=== PATIENT | female | born 1945 | race Caucasian/White ===

== ENCOUNTER 2020-01-22 14:11 | Outpatient (REF) | payer MEDICARE, SELFPAY ==
--- NOTE | 2020-01-22 | MM_ITS ---
EXAMINATION: MM SCREENING DIGITAL BREAST TOMOSYNTHESIS, BILATERAL CLINICAL INFORMATION: Screening. Asymptomatic. The lifetime risk of breast cancer based on the Tyrer-Cuzick Model is 3%. COMPARISON: Mammography: 06/28/2018, 05/31/2017, 02/29/2016 TECHNIQUE: Digital breast tomosynthesis is performed in both the craniocaudal and mediolateral oblique views along with computer-aided detection (CAD). Synthesized 2D images are generated from the tomosynthesis. FINDINGS: The breasts are heterogeneously dense, which may obscure small masses (ACR BI-RADS breast composition Category c). There are no significant masses, abnormal calcifications, or other abnormalities. Parenchymal pattern is similar to prior studies. No significant changes. IMPRESSION: No mammographic evidence of malignancy. ASSESSMENT: BI-RADS 1: Negative RECOMMENDATION: Routine annual mammography screening. This patient's information was entered into a reminder system with a target due date for their next mammogram.
== END 2020-01-22 14:12 | disposition home or self-care (01) ==
LOC: HO.MAMMO 14:11
PROVIDERS: PCP Internal Medicine; Visit Provider Internal Medicine
DX: Z12.31 Encounter for screening mammogram for malignant neoplasm of breast (principal)
CPT/HCPCS: 77063; 77067; 78014

== ENCOUNTER 2021-02-18 13:56 | Outpatient (REF) | payer MEDICARE, SELFPAY ==
--- NOTE | ~2021-02-18 | MM_ITS ---
EXAMINATION: BONE DENSITOMETRY CLINICAL INDICATION: Osteoporosis. COMPARISON: Previous BD dated 11/23/2018 and baseline BD dated 10/26/2007. TECHNIQUE: Using a [employer] DXA System (software version: 13.1) manufactured by [employer], dual-energy x-ray absorptiometry was performed of the lumbar spine and left hip. The images are of good technical quality. Summary results are attached. FINDINGS: AP SPINE L1-L4: Current: BMD 1.018 g/cm2, Z-score 1.0, T-score -1.3, osteopenia, 0.3% increase from previous, 2.7% decrease from baseline (<5% change is not significant). Prior: BMD 1.015 g/cm2. Baseline: BMD 1.046 g/cm2. LEFT FEMUR, NECK: Current: BMD 0.664 g/cm2, Z-score -0.4, T-score -2.7, osteoporosis. Prior: BMD 0.676 g/cm2. Baseline: BMD 0.668 g/cm2. LEFT FEMUR, TOTAL: Current: BMD 0.685 g/cm2, Z-score -0.5, T-score -2.6, osteoporosis, 0.6% increase from previous, 7.6% decrease from baseline (<5% change is not significant). Prior: BMD 0.681 g/cm2. Baseline: BMD 0.741 g/cm2. IDENTIFIED RISK FACTORS: Menopause, low body weight, osteoporosis. HISTORY OF FRACTURE: None listed. MEDICATIONS: Calcium, vitamin D. MM/XR DEXA axial skeleton IMPRESSION: 1. DIAGNOSIS: Osteoporosis based on the lowest T-score value of -2.7 in the femoral neck applying World Health Organization criteria. 2. 10-YEAR FRACTURE RISK PREDICTION, FRAX: According to the guidelines, FRAX calculation should only be performed on patients in the osteopenia bone density category. 3. Treatment Recommendations: NOF guidelines recommend consideration for treatment in postmenopausal women and men age 50 and older presenting with the following: -A hip or vertebral (clinical or morphometric) fracture. -T-score less than or equal to -2.5 at the femoral neck or spine after appropriate evaluation to exclude secondary causes. -Low bone mass at the hip or spine and a 10-year fracture probability by FRAX of greater than or equal to 3% for hip fracture or greater than or equal to 20% for major osteoporotic fracture based on the [place] adapted WHO algorithm. 4. Other Recommendations: All treatment decisions require clinical judgment and consideration of individual patient factors, including patient preferences, comorbidities, previous drug use, risk factors not captured in the FRAX model (e.g. frailty, falls, vitamin D deficiency, increased bone turnover, interval significant decline in bone density) and possible under or overestimation of fracture risk by FRAX. Additional medical evaluation for secondary cause of low bone mineral density may be appropriate. FUTURE SCAN RECOMMENDATION: People with diagnosed cases of osteoporosis or at high risk for fracture should have regular bone mineral density tests. For patients eligible for Medicare, routine testing is allowed once every 2 years. The testing frequency can be increased to one year for patients who have rapidly progressing disease, those who are receiving or discontinuing medical therapy to restore bone mass, or have additional risk factors.
--- NOTE | ~2021-02-18 | MM_ITS ---
EXAMINATION: MM SCREENING DIGITAL BREAST TOMOSYNTHESIS, BILATERAL CLINICAL INFORMATION: Screening. Asymptomatic. The lifetime risk of breast cancer based on the Tyrer-Cuzick Model is 2.9%. COMPARISON: Mammography: January 22, 2020 and studies dating back to March 05, 2011 TECHNIQUE: Digital breast tomosynthesis is performed in both the craniocaudal and mediolateral oblique views along with computer-aided detection (CAD). Synthesized 2D images are generated from the tomosynthesis. FINDINGS: The breasts are heterogeneously dense, which may obscure small masses (ACR BI-RADS breast composition Category c). There are no significant masses, abnormal calcifications, or other abnormalities. MM/MM tomosynthesis screening BI IMPRESSION: There are no significant changes from prior study. ASSESSMENT: BI-RADS 1: Negative RECOMMENDATION: Routine annual mammography screening. This patient's information was entered into a reminder system with a target due date for their next mammogram.
== END 2021-02-18 13:57 | disposition home or self-care (01) ==
LOC: HO.MAMMO 13:56
PROVIDERS: PCP Internal Medicine; Visit Provider Internal Medicine
DX: Z12.31 Encounter for screening mammogram for malignant neoplasm of breast (principal); Z13.820 Encounter for screening for osteoporosis; M81.0 Age-related osteoporosis without current pathological fracture; Z78.0 Asymptomatic menopausal state; Z79.899 Other long term (current) drug therapy
CPT/HCPCS: 77063; 77067; 77080

== ENCOUNTER 2022-02-24 10:07 | Outpatient (REF) | payer MEDICARE, SELFPAY ==
--- NOTE | ~2022-02-24 | MM_ITS ---
EXAMINATION: MM SCREENING DIGITAL BREAST TOMOSYNTHESIS, BILATERAL CLINICAL INFORMATION: Screening. Asymptomatic. COMPARISON: Mammography: February 18, 2021 and studies dating back to August 22, 2014 TECHNIQUE: Digital breast tomosynthesis is performed in both the craniocaudal and mediolateral oblique views along with computer-aided detection (CAD). Synthesized 2D images are generated from the tomosynthesis. Additional bilateral exaggerated craniocaudal views performed. FINDINGS: The breasts are heterogeneously dense, which may obscure small masses (ACR BI-RADS breast composition Category c). There are no significant masses, abnormal calcifications, or other abnormalities. MM/MM tomosynthesis screening BI IMPRESSION: No significant changes from prior exam. ASSESSMENT: BI-RADS 1: Negative RECOMMENDATION: Routine annual mammography screening. This patient's information was entered into a reminder system with a target due date for their next mammogram.
== END 2022-02-24 10:08 | disposition home or self-care (01) ==
LOC: HO.MAMMO 10:07
PROVIDERS: Visit Provider Internal Medicine
DX: Z12.31 Encounter for screening mammogram for malignant neoplasm of breast (principal)
CPT/HCPCS: 77063; 77067

== ENCOUNTER 2023-03-02 09:41 | Outpatient (REF) | payer MEDICARE, SELFPAY ==
--- NOTE | ~2023-03-02 | MM_ITS ---
EXAMINATION: MM SCREENING DIGITAL BREAST TOMOSYNTHESIS, BILATERAL CLINICAL INFORMATION: Screening. Asymptomatic. COMPARISON: Mammography: 10/24/2021, 02/18/2021, 01/22/2020, 06/28/2018, 05/31/2017, 02/29/2016 TECHNIQUE: Digital breast tomosynthesis is performed in both the craniocaudal and mediolateral oblique views along with computer-aided detection (CAD). Synthesized 2D images are generated from the tomosynthesis. FINDINGS: The breasts are heterogeneously dense, which may obscure small masses (ACR BI-RADS breast composition Category c). There are benign vascular calcifications. There are no suspicious masses, suspicious grouped calcifications, or areas of architectural distortion in either breast. The parenchymal pattern is stable from prior exams. MM/MM tomosynthesis screening BI IMPRESSION: No mammographic evidence of malignancy. ASSESSMENT: BI-RADS BI-RADS 2 - Benign Findings RECOMMENDATION: Routine annual mammography screening. 1 year F/U This examination should not preclude the clinical evaluation of a suspicious palpable abnormality. This patient's information was entered into a reminder system with a target due date for their next mammogram.
== END 2023-03-02 09:42 | disposition home or self-care (01) ==
LOC: HO.MAMMO 09:41
PROVIDERS: PCP Internal Medicine; Visit Provider Internal Medicine
DX: Z12.31 Encounter for screening mammogram for malignant neoplasm of breast (principal)
CPT/HCPCS: 77063; 77067

== ENCOUNTER → 2023-03-02 10:00 | Outpatient (BNV) | payer MEDICARE, SELFPAY | PROVIDERS: PCP Internal Medicine; Visit Provider Radiology Diagnostic Radiology | DX: Z12.31 Encounter for screening mammogram for malignant neoplasm of breast (principal) | CPT/HCPCS: 77063; 77067 ==

== ENCOUNTER 2024-04-26 09:36 | Outpatient (REF) | payer MEDICARE, SELFPAY | END 2024-04-26 09:37 | disposition home or self-care (01) | LOC: HO.MAMMO 09:36 | PROVIDERS: PCP Internal Medicine; Visit Provider Internal Medicine | DX: Z12.31 Encounter for screening mammogram for malignant neoplasm of breast (principal) | CPT/HCPCS: 77063; 77067 ==

== ENCOUNTER → 2024-04-26 09:45 | Outpatient (BNV) | payer MEDICARE, SELFPAY | PROVIDERS: PCP Internal Medicine; Visit Provider Internal Medicine | DX: Z12.31 Encounter for screening mammogram for malignant neoplasm of breast (principal) | CPT/HCPCS: 77063; 77067 ==

== ENCOUNTER 2024-12-02 10:14 | Outpatient (AMB) | payer MEDICARE, SELFPAY | END 2024-12-02 10:20 | disposition home or self-care (01) | LOC: HO.HMGAL 10:14 | PROVIDERS: PCP Internal Medicine; Visit Provider Registered Nurse Emergency | DX: J30.89 Other allergic rhinitis (principal) | CPT/HCPCS: 95117; 95165 ==

== ENCOUNTER 2024-12-30 10:01 | Outpatient (AMB) | payer MEDICARE, SELFPAY | END 2024-12-30 10:10 | disposition home or self-care (01) | LOC: HO.HMGAL 10:01 | PROVIDERS: PCP Internal Medicine; Visit Provider Registered Nurse Emergency | DX: J30.89 Other allergic rhinitis (principal) | CPT/HCPCS: 95117; 95165 ==

== ENCOUNTER 2025-02-05 10:18 | Outpatient (AMB) | payer MEDICARE, SELFPAY ==
--- OUTSIDE RECORDS SUMMARY | 2024-06-20 02:29 | XMS_ITS ---
Author Organization [facility] Address [address] [place], [place] [phone] Care Team Providers Care Director Life Insurance Name Role Phone YVON RAE Primary Care Provider REASON FOR VISIT Urine Encounters Encounter Location Date Provider Diagnosis [facility] [address] [place] [address] 06/20/2024 YVON RAE PLAN OF TREATMENT Next Appt Details Provider Name:YVON RAE , 04/07/2025 11:15:00 AM, [address] [place], [address],
--- OUTSIDE RECORDS SUMMARY | 2024-06-26 15:37 | XMS_ITS ---
Author Organization [facility] Address [address] [place], [place] [phone] Care Team Providers Care Press Shop Supervisor Name Role Phone YVON RAE Primary Care Provider REASON FOR VISIT (FYI) US Encounters Encounter Location Date Provider Diagnosis [facility] [address] [place] [address] 06/26/2024 YVON RAE PLAN OF TREATMENT Next Appt Details Provider Name:YVON RAE , 04/07/2025 11:15:00 AM, [address] [place], [address],
--- OUTSIDE RECORDS SUMMARY | 2024-07-10 04:08 | XMS_ITS ---
Author Organization [facility] Address [address] [place], [place] [id number] Care Team Providers Care Rehanger Name Role Phone YVON RAE Primary Care Provider [phone] REASON FOR VISIT rescheduled today's appt Encounters Encounter Location Date Provider Diagnosis [address] [address] 07/10/2024 YVON RAE PLAN OF TREATMENT Next Appt Details Provider Name:YVON RAE , 04/07/2025 11:15:00 AM, [address] [place], [address],
--- OUTSIDE RECORDS SUMMARY | 2024-07-10 07:15 | XMS_ITS ---
Author Organization [facility] Address [address] [place], [place] [phone] Care Team Providers Care Model Maker Fiberglass Name Role Phone YVON RAE Primary Care Provider REASON FOR VISIT 41/ 3mo Encounters Encounter Location Date Provider Diagnosis [facility] [address] [place] [address] 07/10/2024 YVON RAE PLAN OF TREATMENT Next Appt Details Provider Name:YVON RAE , 04/07/2025 11:15:00 AM, [address] [place], [address],
--- OUTSIDE RECORDS SUMMARY | 2024-08-08 07:00 | XMS_ITS ---
Author Organization [facility] Address [address] [place], [place] [phone] Care Team Providers Care Mental Health Associate Name Role Phone YVON RAE Primary Care [...] 08/08/2024 Encounters Encounter Location Date Provider Diagnosis [facility] [address] [place] [address] 08/08/2024 YVON RAE Recurrent UTI N39.0 ; [...] Name:YVON RAE , 04/07/2025 11:15:00 AM, [address] [facility], [place], [address], Progress Notes * Examination Category Sub-Category Detail [...]
--- OUTSIDE RECORDS SUMMARY | 2024-08-09 11:50 | XMS_ITS ---
Author Organization [facility] Address [address] [place], [place] [phone] Care Team Providers Care Timber Rider Name Role Phone YVON RAE Primary Care Provider [phone] REASON FOR VISIT Labs Encounters Encounter Location Date Provider Diagnosis [facility] [address] [place] [address] 08/09/2024 YVON RAE PLAN OF TREATMENT Next Appt Details Provider Name:YVON RAE , 04/07/2025 11:15:00 AM, [address] [place], [address],
--- OUTSIDE RECORDS SUMMARY | 2024-08-27 07:44 | XMS_ITS ---
Author Organization [facility] Address [address] [place], [place] [phone] Care Team Providers Care Rope Making Machine Operator Name Role Phone YVON RAE Primary Care Provider [phone] REASON FOR VISIT Shingles Shot Encounters Encounter Location Date Provider Diagnosis [facility] [address] [place] [address] 08/27/2024 YVON RAE PLAN OF TREATMENT Next Appt Details Provider Name:YVON RAE , 04/07/2025 11:15:00 AM, [address] [place], [address],
--- OUTSIDE RECORDS SUMMARY | 2024-10-10 07:00 | XMS_ITS ---
Author Organization [facility] Address [address] [place], [place] [phone] Care Team Providers Care Special Education Professional Name Role Phone YVON RAE Primary Care Provider [phone] ALLERGIES Allergen (clinical drug ingredient) Drug/Non Drug [...] 10/10/2024 Encounters Encounter Location Date Provider Diagnosis [facility] [address] [place] [address] 10/10/2024 YVON RAE Recurrent UTI N39.0 ; [...] , 04/07/2025 11:15:00 AM, [address] [place], [address], Progress Notes * Examination Category Sub-Category Detail [...]
--- OUTSIDE RECORDS SUMMARY | 2025-01-06 07:15 | XMS_ITS ---
Author Organization [facility] Address [address] [place], [place] [phone] Care Team Providers Care Watch Engine Operator Name Role Phone YVON RAE Primary Care Provider [phone] ALLERGIES Allergen (clinical drug ingredient) Drug/Non Drug [...] 01/06/2025 Encounters Encounter Location Date Provider Diagnosis [facility] [address] [place] [address] 01/06/2025 YVON RAE Recurrent UTI N39.0 ; [...] Name:YVON RAE , 04/07/2025 11:15:00 AM, [address] [place], [address], Progress Notes * Examination Category Sub-Category Detail [...]
--- OUTSIDE RECORDS SUMMARY | 2025-01-07 02:21 | XMS_ITS ---
Author Organization [facility] Address [address] [place], [place] [phone] Care Team Providers Care Filter Bed Placer Name Role Phone YVON RAE Primary Care Provider REASON FOR VISIT labs Encounters Encounter Location Date Provider Diagnosis [facility] [address] [place] [address] 01/07/2025 YVON RAE PLAN OF TREATMENT Next Appt Details Provider Name:YVON RAE , 04/07/2025 11:15:00 AM, [address] [place], [address],
--- OUTSIDE RECORDS SUMMARY | 2025-02-05 12:41 | XMS_ITS | Patient Health Record ---
Author Organization [facility] Address [address], [place] [id number] Care Team Providers Care Barrel Plater Name Role Phone YVON RAE Primary Care Provider [phone] ALLERGIES Allergen (clinical drug ingredient) Drug/Non Drug Allergy documented on EMR Reaction Allergy Type Onset Date Status codeine Codeine Unknown Drug Allergy Active REASON FOR REFERRAL No Information MEDICATIONS Medication SIG (Take, Route, Frequency, Duration) [...] tablet Oral ly Once a day Active IMMUNIZATIONS Vaccine Route Administration Date Status Comme nts Zoster recombinant SC Subcutaneous 11/21/2012 Administered Td (Tetanus Diphtheria) Unknown 11/28/2008 Administered SARSCOV2 VAC BVL 3MCG/0.2ML Pfizer Unknown 02/02/2021 Administered SARSCOV2 VAC 3 MCG TRS-SUCR Pfizer Unknown 08/24/2021 Administered Pneumococcal, PPV 23 Unknown 03/25/2013 Administered Pneumococcal, PPV 23 IM Intramuscular 07/22/2019 Administe red Pneumococcal Prevnar 13 IM Intramuscular 03/25/2013 Admini stered Pneumococcal Prevnar 13 Unknown 08/21/2018 Administered Pfizer COVID-19,mRNA, LNP-S, PF, 30mcg/0.3mL dose Unknown 06/27/2020 Administered Pfizer COVID-19,mRNA, LNP-S, PF, 30mcg/0.3mL dose Unknown 07/18/2020 Administered Covid Unknown 01/19/2022 Administered SOCIAL HISTORY Tobacco Use: Social History Observation Description Date Details (start date - stop date) Former Smoker NA - NA Sex Assigned At : Social History Observation Description Sex Assigned At Unknown Smoking Question Answer Notes Are you a: former smoker How long has it been since you last smoked? > 10 years PROBLEMS Problem Type ICD Code Onset Dates Problem Status W/U Status Risk SNOMED Code Notes Problem Vitamin D deficiency (E55.9) Active confirmed 10368181 Problem Age-related osteoporosis without current pathological fracture (M81.0) Active confirmed 45296873 Problem Chronic obstructive pulmonary disease, unspecified COPD type (J44.9) Active confirmed 17529750 Problem Chronic allergic rhinitis (J30.9) Active confirmed 90155910 Problem Type 2 diabetes mellitus with hyperglycemia, without long-term current use of insulin (E11.65) Active confirmed Hyperglycem ia due to type 2 diabetes mellitus (732517828095962 ) Problem Type 2 diabetes mellitus without complication, without long-term current use of insulin (E11.9) Active confirmed Type II diab etes mellitus without complication (013988041) Problem Essential (primary) hypertension (I10) 0 Active confirmed Essential hypertension (96047915) Problem Vitamin D deficiency, unspecified (E55.9) 4 Active confirmed Vitamin D deficiency (74289631) Problem Impaired fasting glucose (R73.01) 4 Active confirmed Impaired fasting glucose (903604035) Problem Encounter for general adult medical examination with abnormal findings (Z00.01) 4 Active confirmed Problem, abnormal examination (21066257) VITAL SIGNS Blood pressure diastolic 80 mm Hg 01/06/2025 Height 62.00 in 01/06/2025 Blood pressure systolic 132 mm Hg 01/06/2025 Weight 95.8 lbs 01/06/2025 BMI 17.52 kg/m2 01/06/2025 Encounters Encounter Location Date Provider Diagnosis [address] [address] 02/26/2024 YVON RAE Type 2 diabetes mellitus without complication, without long-term current use of insulin E11.9 ; Essential (primary) hypertension I10 and Chronic allergic rhinitis J30.9 [address] [place] [address] 02/27/2024 [facility] [address] [place] [address] 04/22/2024 [facility] Acute UTI N39.0 [facility] [address] [place] [address] 04/23/2024 [facility] [address] [place] [address] 04/29/2024 [facility] Acute UTI N39.0 [facility] [address] [place] [address] 05/04/2024 [facility] Acute UTI N39.0 [facility] [address] [place] [address] 05/16/2024 [facility] [address] [place] [address] 05/17/2024 [facility] Recurrent UTI N39.0 and Pelvic pain R10.2 [facility] [address] [place] [address] 05/17/2024 [facility] [address] [place] [address] 05/20/2024 [facility] [address] [place] [address] 05/20/2024 [facility] [address] [place] [address] 05/27/2024 [facility] Acute UTI N39.0 [facility] [address] [place] [address] 05/27/2024 [facility] [address] [place] [address] 05/28/2024 [facility] [address] [place] [address] 05/29/2024 [facility] [address] [place] [address] 05/30/2024 [facility] [address] [place] [address] 06/04/2024 [facility] Acute UTI N39.0 [facility] [address] [place] [address] 06/08/2024 [facility] [address] [place] [address] 06/10/2024 [facility] [address] [place] [address], [place] [id number] 06/10/2024 [facility] Recurrent UTI N39.0 ; Type 2 diabetes mellitus without complication, without long-term current use of insulin E11.9 and Essential (primary) hypertension I10 [facility] [address] [place] [address], [place] [address] 06/14/2024 [facility] [address] [place] [address], [place] [id number] 06/17/2024 [facility] Acute UTI N39.0 [facility] [address] [place] [address], [place] [id number] 06/20/2024 [facility] [address] [place] [address], [place] [id number] 06/26/2024 [facility] [address] [place] [address], [place] [id number] 07/10/2024 [facility] [address] [place] [address], [place] [id number] 07/10/2024 [facility] [address] [place] [address], [place] [id number] 08/08/2024 [facility] Recurrent UTI N39.0 ; Essential (primary) hypertension I10 ; Other fatigue R53.83 and Type 2 diabetes mellitus without complication, without long-term current use of insulin E11.9 [facility] [address] [place] [address], [place] [id number] 08/09/2024 [facility] [address] [place] [address] 08/27/2024 [facility] [address] [place] [address], [place] [id number] 10/10/2024 [facility] Recurrent UTI N39.0 ; Type 2 diabetes mellitus without complication, without long-term current use of insulin E11.9 and Essential (primary) hypertension I10 [facility] [address] [place] [address], [place] [id number] 01/06/2025 [facility] Recurrent UTI N39.0 ; Type 2 diabetes mellitus without complication, without long-term current use of insulin E11.9 ; Essential (primary) hypertension I10 and Chronic allergic rhinitis J30.9 [facility] [address] [place] [address] 01/07/2025 [facility] Encounter Date Diagnosis Assessment Notes Treatment Notes Treatment Clinical Notes Section Notes 02/26/2024 Essential (primary) hypertension (ICD-10 - I10) 1. Diabetes: Patient has been stable long-term with diet control. We will update A1c today and guide accordingly 2. Hypertension: Stable on present therapy. No changes made today 3. Allergic rhinitis: She is continuing with allergy shots. She does not wish for additional allergy medication at this time as she is found to have limited benefit 02/26/2024 Type 2 diabetes mellitus without complication, without long-term current use of insulin (ICD-10 - E11.9) 1. Diabetes: Patient has been stable long-term with diet control. We will update A1c today and guide accordingly 2. Hypertension: Stable on present therapy. No changes made today 3. Allergic rhinitis: She is continuing with allergy shots. She does not wish for additional allergy medication at this time as she is found to have limited benefit 04/22/2024 Acute UTI (ICD-10 - N39.0) 04/29/2024 Acute UTI (ICD-10 - N39.0) 05/04/2024 Acute UTI (ICD-10 - N39.0) 05/17/2024 Recurrent UTI (ICD-10 - N39.0) 1. Recurrent UTIs: Will recheck urine today along with blood work. Given pelvic pressure will check an ultrasound of the bladder and kidneys. Will also start Estrace cream to see if this helps as a preventative measure. Further recommendations pending these results 2. Hypertension: Stable on present regimen. No changes made today 05/17/2024 Pelvic pain (ICD-10 - R10.2) 1. Recurrent UTIs: Will recheck urine today along with blood work. Given pelvic pressure will check an ultrasound of the bladder and kidneys. Will also start Estrace cream to see if this helps as a preventative measure. Further recommendations pending these results 2. Hypertension: Stable on present regimen. No changes made today 05/27/2024 Acute UTI (ICD-10 - N39.0) 06/04/2024 Acute UTI (ICD-10 - N39.0) 06/10/2024 Recurrent UTI (ICD-10 - N39.0) 1. Recurrent UTIs: Will trial low-dose nitrofurantoin daily to see if this helps prevent further infections. She will follow through with her ultrasound of the bladder and kidneys on June 22. I have also encouraged her to retry the Estrace which she disliked. Explained that this may very well help preventatively as well 2. Diabetes: Has been stable with diet. Encouraged her to eat what she feels like right now -within reason - and we will follow sugar closely 3. Hypertension: Mildly elevated today. Will recheck at follow-up in 1 month 06/10/2024 Type 2 diabetes mellitus without complication, without long-term current use of insulin (ICD-10 - E11.9) 1. Recurrent UTIs: Will trial low-dose nitrofurantoin daily to see if this helps prevent further infections. She will follow through with her ultrasound of the bladder and kidneys on June 22. I have also encouraged her to retry the Estrace which she disliked. Explained that this may very well help preventatively as well 2. Diabetes: Has been stable with diet. Encouraged her to eat what she feels like right now -within reason - and we will follow sugar closely 3. Hypertension: Mildly elevated today. Will recheck at follow-up in 1 month 06/17/2024 Acute UTI (ICD-10 - N39.0) 08/08/2024 Essential (primary) hypertension (ICD-10 - I10) 1. Recurrent UTI: Better controlled with nitrofurantoin. Will continue at present. Discussed trialing a different probiotic such as Align 2. Hypertension: Stable on present losartan hydrochlorothiazide and amlodipine. No changes made today 3. Fatigue: Will check thyroid function with laboratory studies 4. Type 2 diabetes mellitus: Has been stable with diet. Will recheck A1c today 08/08/2024 Recurrent UTI (ICD-10 - N39.0) 1. Recurrent UTI: Better controlled with nitrofurantoin. Will continue at present. Discussed trialing a different probiotic such as Align 2. Hypertension: Stable on present losartan hydrochlorothiazide and amlodipine. No changes made today 3. Fatigue: Will check thyroid function with laboratory studies 4. Type 2 diabetes mellitus: Has been stable with diet. Will recheck A1c today 10/10/2024 Recurrent UTI (ICD-10 - N39.0) 1. [...] on present therapy. No changes made today 01/06/2025 Recurrent UTI (ICD-10 - N39.0) 1. [...] Hypertension: Stable on current losartan, amlodipine and hydrochlorothiazide. Will continue same 4. Chronic allergic rhinitis: [...] Hypertension: Stable on current losartan, amlodipine and hydrochlorothiazide. Will continue same 4. Chronic allergic rhinitis: Continues with allergy shots. Recommended Claritin or Charisma along with Flonase for flare of symptoms. She will let me know if not improving 02/26/2024 Chronic allergic rhinitis (ICD-10 - J30.9) 1. Diabetes: Patient has been stable long-term with diet control. We will update A1c today and guide accordingly 2. Hypertension: Stable on present therapy. No changes made today 3. Allergic rhinitis: She is continuing with allergy shots. She does not wish for additional allergy medication at this time as she is found to have limited benefit 06/10/2024 Essential (primary) hypertension (ICD-10 - I10) 1. Recurrent UTIs: Will trial low-dose nitrofurantoin daily to see if this helps prevent further infections. She will follow through with her ultrasound of the bladder and kidneys on June 22. I have also encouraged her to retry the Estrace which she disliked. Explained that this may very well help preventatively as well 2. Diabetes: Has been stable with diet. Encouraged her to eat what she feels like right now -within reason - and we will follow sugar closely 3. Hypertension: Mildly elevated today. Will recheck at follow-up in 1 month 08/08/2024 Other fatigue (ICD-10 - R53.83) 1. Recurrent UTI: Better controlled with nitrofurantoin. Will continue at present. Discussed trialing a different probiotic such as Align 2. Hypertension: Stable on present losartan hydrochlorothiazide and amlodipine. No changes made today 3. Fatigue: Will check thyroid function with laboratory studies 4. Type 2 diabetes mellitus: Has been stable with diet. Will recheck A1c today 10/10/2024 Essential (primary) hypertension (ICD-10 - [...] on present therapy. No changes made today 01/06/2025 Essential (primary) hypertension (ICD-10 - I10) [...] Hypertension: Stable on current losartan, amlodipine and hydrochlorothiazide. Will continue same 4. Chronic allergic rhinitis: Continues with allergy shots. Recommended Claritin or Charisma along with Flonase for flare of symptoms. She will let me know if not improving 08/08/2024 Type 2 diabetes mellitus without complication, [...] stable with diet. Will recheck A1c today 01/06/2025 Chronic allergic rhinitis (ICD-10 - J30.9) [...] Hypertension: Stable on current losartan, amlodipine and hydrochlorothiazide. Will continue same 4. Chronic allergic rhinitis: Continues with allergy shots. Recommended Claritin or Charisma along with Flonase for flare of symptoms. She will let me know if not improving PLAN OF TREATMENT Pending Test Test Name Order Date XR Thumb Right 3 views 01/11/2023 PFT (Pulmonary Function Test) 11/17/2023 Bone Density 2 site DEXA 08/17/2023 Next Appt Details Provider Name:YVON Manzanares KYRA , 04/07/2025 11:15:00 AM, [address] [facility], [place], [address], Insurance Providers Payer Name Payer Address Payer Phone Subscriber Number Group Number Insured Name Patient Relationship to Insured Coverage Start Date Coverage End Date [employer] [facility] [address] [place] [phone] [id number] MIKE REBOLLEDO Self - patient is the insured 3 MEDICAL (GENERAL) HISTORY Medical History History ICD Code HTN Osteoporosis Surgical History Surgery Date(Month/Year) T+A
== END 2025-02-05 10:19 | disposition home or self-care (01) ==
LOC: HO.HMGAL 10:18
PROVIDERS: PCP Internal Medicine; Visit Provider Registered Nurse Emergency
DX: J30.89 Other allergic rhinitis (principal)
CPT/HCPCS: 95117; 95165

== ENCOUNTER 2025-03-05 10:38 | Outpatient (AMB) | payer MEDICARE, SELFPAY ==
--- OUTSIDE RECORDS SUMMARY | 2024-06-20 01:29 | XMS_ITS ---
Author Organization [facility] Address [address] [place], [place] [id number] Care Team Providers Care Orthopedic Shoe Maker Name Role Phone YVON RAE Primary Care Provider REASON FOR VISIT Urine Encounters Encounter Location Date Provider Diagnosis [facility] [address] [place] [address] 06/20/2024 YVON RAE PLAN OF TREATMENT Next Appt Details Provider Name:YVON RAE , 04/07/2025 11:15:00 AM, [address] [place], [address],
--- OUTSIDE RECORDS SUMMARY | 2024-06-26 14:37 | XMS_ITS ---
Author Organization [facility] Address [address] [place], [place] [id number] Care Team Providers Care Caramel Coloring Operator Name Role Phone YVON RAE Primary Care Provider [phone] REASON FOR VISIT (FYI) [place] Encounters Encounter Location Date Provider Diagnosis [facility] [address] [place] [address] 06/26/2024 YVON RAE PLAN OF TREATMENT Next Appt Details Provider Name:YVON RAE , 04/07/2025 11:15:00 AM, [address] [place], [address],
--- OUTSIDE RECORDS SUMMARY | 2024-07-10 03:08 | XMS_ITS ---
Author Organization [facility] Address [address] [place], [place] [id number] Care Team Providers Care Nurse Outreach Case Manager Name Role Phone YVON RAE Primary Care Provider [phone] REASON FOR VISIT rescheduled today's appt Encounters Encounter Location Date Provider Diagnosis [address] [address] 07/10/2024 YVON RAE PLAN OF TREATMENT Next Appt Details Provider Name:YVON RAE , 04/07/2025 11:15:00 AM, [address] [place], [address],
--- OUTSIDE RECORDS SUMMARY | 2024-07-10 06:15 | XMS_ITS ---
Author Organization [facility] Address [address] [place], [place] [phone] Care Team Providers Care Wheel And Caster Repairer Name Role Phone YVON RAE Primary Care Provider [phone] REASON FOR VISIT 41/ 3mo Encounters Encounter Location Date Provider Diagnosis [facility] [address] [place] [address] 07/10/2024 YVON RAE PLAN OF TREATMENT Next Appt Details Provider Name:YVON RAE , 04/07/2025 11:15:00 AM, [address] [place], [address],
--- OUTSIDE RECORDS SUMMARY | 2024-08-08 06:00 | XMS_ITS ---
Author Organization [facility] Address [address] [place], [place] [phone] Care Team Providers Care Instrumentation Technologist Name Role Phone YVON RAE Primary Care Provider ALLERGIES Allergen (clinical drug ingredient) Drug/Non Drug Allergy documented on EMR Reaction Allergy Type Onset Date Status codeine Codeine Unknown Drug Allergy Active REASON FOR VISIT 3m f/u, covid screen negative MEDICATIONS Medication SIG (Take, Route, Frequency, Duration) Notes Start Date End Date Status Losartan Potassium 100 MG 1 tablet Orall y Once a day Active Nitrofurantoin Macrocrystal 50 MG 1 capsule Orally Once a day 06/10/2024 Active amLODIPine Besylate 2.5 MG 1 tablet Oral ly Once a day Active hydroCHLOROthiazide 25 MG 1 tablet in th e morning Orally Once a day Active SOCIAL HISTORY Tobacco Use: Social History Observation Description Date Details (start date - stop date) Former Smoker NA - NA Sex Assigned At : Social History Observation Description Sex Assigned At Unknown Smoking Question Answer Notes Are you a: former smoker How long has it been since you last smoked? > 10 years VITAL SIGNS Height 62.00 in 08/08/2024 Weight 95.5 lbs 08/08/2024 Blood pressure systolic 124 mm Hg 08/09/19 25 Blood pressure diastolic 80 mm Hg 025 BMI 17.47 kg/m2 08/08/2024 Encounters Encounter Location Date Provider Diagnosis [facility] [address] [place] [address] 08/08/2024 YVON RAE Recurrent UTI N39.0 ; Essential (primary) hypertension I10 ; Other fatigue R53.83 and Type 2 diabetes mellitus without complication, without long-term current use of insulin E11.9 ASSESSMENTS Encounter Date Diagnosis Assessment Notes Treatment Notes Treatment Clinical Notes Section Notes 08/08/2024 Recurrent UTI (ICD-10 - N39.0) 1. Recurrent UTI: Better controlled with nitrofurantoin. Will continue at present. Discussed trialing a different probiotic such as Align 2. Hypertension: Stable on present losartan hydrochlorothiazide and amlodipine. No changes made today 3. Fatigue: Will check thyroid function with laboratory studies 4. Type 2 diabetes mellitus: Has been stable with diet. Will recheck A1c today 08/08/2024 Essential (primary) hypertension (ICD-10 - I10) 1. Recurrent UTI: Better controlled with nitrofurantoin. Will continue at present. Discussed trialing a different probiotic such as Align 2. Hypertension: Stable on present losartan hydrochlorothiazide and amlodipine. No changes made today 3. Fatigue: Will check thyroid function with laboratory studies 4. Type 2 diabetes mellitus: Has been stable with diet. Will recheck A1c today 08/08/2024 Other fatigue (ICD-10 - R53.83) 1. Recurrent UTI: Better controlled with nitrofurantoin. Will continue at present. Discussed trialing a different probiotic such as Align 2. Hypertension: Stable on present losartan hydrochlorothiazide and amlodipine. No changes made today 3. Fatigue: Will check thyroid function with laboratory studies 4. Type 2 diabetes mellitus: Has been stable with diet. Will recheck A1c today 08/08/2024 Type 2 diabetes mellitus without complication, without long-term current use of insulin (ICD-10 - E11.9) 1. Recurrent UTI: Better controlled with nitrofurantoin. Will continue at present. Discussed trialing a different probiotic such as Align 2. Hypertension: Stable on present losartan hydrochlorothiazide and amlodipine. No changes made today 3. Fatigue: Will check thyroid function with laboratory studies 4. Type 2 diabetes mellitus: Has been stable with diet. Will recheck A1c today PLAN OF TREATMENT Medication Medication Name Sig Start Date Stop Date Notes Losartan Potassium 100 MG 1 tablet Orall y Once a day Nitrofurantoin Macrocrystal 50 MG 1 caps ule Orally Once a day 06/10/2024 amLODIPine Besylate 2.5 MG 1 tablet Oral ly Once a day hydroCHLOROthiazide 25 MG 1 tablet in th e morning Orally Once a day Next Appt Details Provider Name:YVON RAE , 04/07/2025 11:15:00 AM, [address] [facility], [place], [address], Progress Notes * Examination Category Sub-Category Detail Notes Category Not es General Examination Heart: RSR, normal S1S2 Lungs: clear to auscultatio n Extremities: no edema General Appearance no apparent distress , pleasant Psych: alert, oriented X 3 Other normal affect History and Physical Notes * HPI (History of Present Illness) Category Sub-Category Detail Notes Category Not es General Patient feels improved. No UTI symptoms at present Feels Culturelle upsets her stomach. Still taking Nitrofurantoin. No chest pain, palpitations or SOB.
--- OUTSIDE RECORDS SUMMARY | 2024-08-09 10:50 | XMS_ITS ---
Author Organization [facility] Address [address] [place], [place] [phone] Care Team Providers Care Mine Car Repairer Name Role Phone YVON RAE Primary Care Provider [phone] REASON FOR VISIT Labs Encounters Encounter Location Date Provider Diagnosis [facility] [address] [place] [address] 08/09/2024 YVON RAE PLAN OF TREATMENT Next Appt Details Provider Name:YVON RAE , 04/07/2025 11:15:00 AM, [address] [place], [address],
--- OUTSIDE RECORDS SUMMARY | 2024-08-27 06:44 | XMS_ITS ---
Author Organization [facility] Address [address] [place], [place] [phone] Care Team Providers Care Cargo Checker Name Role Phone YVON RAE Primary Care Provider [phone] REASON FOR VISIT Shingles Shot Encounters Encounter Location Date Provider Diagnosis [facility] [address] [place] [address] 08/27/2024 YVON RAE PLAN OF TREATMENT Next Appt Details Provider Name:YVON RAE , 04/07/2025 11:15:00 AM, [address] [place], [address],
--- OUTSIDE RECORDS SUMMARY | 2024-10-10 06:00 | XMS_ITS ---
Author Organization [facility] Address [address], [place] [id number] Care Team Providers Care Cement Fittings Maker Name Role Phone YVON RAE Primary Care Provider ALLERGIES Allergen (clinical drug ingredient) Drug/Non Drug Allergy documented on EMR Reaction Allergy Type Onset Date Status codeine Codeine Unknown Drug Allergy Active REASON FOR VISIT 2mo MEDICATIONS Medication SIG (Take, Route, Frequency, Duration) Notes Start Date End Date Status Nitrofurantoin Macrocrystal 50 MG 1 capsule at bedtime with food or milk Orally Once a day Active hydroCHLOROthiazide 25 MG 1 tablet in th e morning Orally Once a day Active amLODIPine Besylate 2.5 MG 1 tablet Oral ly Once a day Active Losartan Potassium 100 MG 1 tablet Orall y Once a day Active SOCIAL HISTORY Tobacco Use: Social History Observation Description Date Details (start date - stop date) Former Smoker NA - NA Sex Assigned At : Social History Observation Description Sex Assigned At Unknown Smoking Question Answer Notes Are you a: former smoker How long has it been since you last smoked? > 10 years VITAL SIGNS Height 62.00 in 10/10/2024 Weight 93.6 lbs 10/10/2024 Blood pressure systolic 126 mm Hg 10/11/19 25 Blood pressure diastolic 74 mm Hg 025 BMI 17.12 kg/m2 10/10/2024 Encounters Encounter Location Date Provider Diagnosis [facility] [address] [place] [address] 10/10/2024 YVON RAE Recurrent UTI N39.0 ; Type 2 diabetes mellitus without complication, without long-term current use of insulin E11.9 and Essential (primary) hypertension I10 ASSESSMENTS Encounter Date Diagnosis Assessment Notes Treatment Notes Treatment Clinical Notes Section Notes 10/10/2024 Recurrent UTI (ICD-10 - N39.0) 1. Recurrent UTIs: Discussed alternatives to prophylactic nitrofurantoin such as methenamine today. She decided to hold off at present and give current therapy a bit longer if she feels like symptoms of nausea have improved some. 2. Type 2 diabetes mellitus: A1c was stable at 6.2 with diet control. Continue current efforts 3. Hypertension: Well-controlled on present therapy. No changes made today 10/10/2024 Type 2 diabetes mellitus without complication, without long-term current use of insulin (ICD-10 - E11.9) 1. Recurrent UTIs: Discussed alternatives to prophylactic nitrofurantoin such as methenamine today. She decided to hold off at present and give current therapy a bit longer if she feels like symptoms of nausea have improved some. 2. Type 2 diabetes mellitus: A1c was stable at 6.2 with diet control. Continue current efforts 3. Hypertension: Well-controlled on present therapy. No changes made today 10/10/2024 Essential (primary) hypertension (ICD-10 - I10) 1. Recurrent UTIs: Discussed alternatives to prophylactic nitrofurantoin such as methenamine today. She decided to hold off at present and give current therapy a bit longer if she feels like symptoms of nausea have improved some. 2. Type 2 diabetes mellitus: A1c was stable at 6.2 with diet control. Continue current efforts 3. Hypertension: Well-controlled on present therapy. No changes made today PLAN OF TREATMENT Medication Medication Name Sig Start Date Stop Date Notes Nitrofurantoin Macrocrystal 50 MG 1 caps ule at bedtime with food or milk Orally Once a day hydroCHLOROthiazide 25 MG 1 tablet in th e morning Orally Once a day amLODIPine Besylate 2.5 MG 1 tablet Oral ly Once a day Losartan Potassium 100 MG 1 tablet Orall y Once a day Next Appt Details Provider Name:YVON RAE , 04/07/2025 11:15:00 AM, [address] [place], [address], Progress Notes * Examination Category Sub-Category Detail Notes Category Not es General Examination Heart: RSR, normal S1S2 Lungs: clear to auscultatio n Extremities: no edema General Appearance no apparent distress , pleasant, thin Back: No CVA tenderness Psych: alert, oriented X 3 Other normal affect History and Physical Notes * HPI (History of Present Illness) Category Sub-Category Detail Notes Category Not es General Patient reports no UTI sx with nitrofurantoin - but has some nausea from the medication. No chest pain, palpitations or SOB Bowel movement back to normal
--- OUTSIDE RECORDS SUMMARY | 2025-01-06 06:15 | XMS_ITS ---
Author Organization [facility] Address [address] [place], [place] [phone] Care Team Providers Care Arboriculturist Name Role Phone YVON RAE Primary Care Provider ALLERGIES Allergen (clinical drug ingredient) Drug/Non Drug Allergy documented on EMR Reaction Allergy Type Onset Date Status codeine Codeine Unknown Drug Allergy Active REASON FOR VISIT 3mo, declines flu vacc for today- feeling off MEDICATIONS Medication SIG (Take, Route, Frequency, Duration) Notes Start Date End Date Status Methenamine Hippurate 1 GM 1 tablet Oral ly Twice a day for 30 day(s) 01/06/2025 Active hydroCHLOROthiazide 25 MG 1 tablet in th e morning Orally Once a day Active Losartan Potassium 100 MG 1 tablet Orall y Once a day Active amLODIPine Besylate 2.5 MG 1 tablet Oral ly Once a day Active SOCIAL HISTORY Tobacco Use: Social History Observation Description Date Details (start date - stop date) Former Smoker NA - NA Sex Assigned At : Social History Observation Description Sex Assigned At Unknown Smoking Question Answer Notes Are you a: former smoker How long has it been since you last smoked? > 10 years VITAL SIGNS Height 62.00 in 01/06/2025 Weight 95.8 lbs 01/06/2025 Blood pressure systolic 132 mm Hg 01/07/20 25 Blood pressure diastolic 80 mm Hg 025 BMI 17.52 kg/m2 01/06/2025 Encounters Encounter Location Date Provider Diagnosis [facility] [address] [place] [address] 01/06/2025 YVON RAE Recurrent UTI N39.0 ; Type 2 diabetes mellitus without complication, without long-term current use of insulin E11.9 ; Essential (primary) hypertension I10 and Chronic allergic rhinitis J30.9 ASSESSMENTS Encounter Date Diagnosis Assessment Notes Treatment Notes Treatment Clinical Notes Section Notes 01/06/2025 Recurrent UTI (ICD-10 - N39.0) 1. Recurrent UTI: Will trial switching from nitrofurantoin to methenamine hippurate. Reviewed dosing and possible side effects. She will keep me apprised of her progress 2. Type 2 diabetes mellitus: We will update A1c on current diet control. She has had long-term stability in this regard with last A1c being 6.2 3. Hypertension: Stable on current losartan, amlodipine and hydrochlorothiazi de. Will continue same 4. Chronic allergic rhinitis: Continues with allergy shots. Recommended Claritin or Charisma along with Flonase for flare of symptoms. She will let me know if not improving 01/06/2025 Type 2 diabetes mellitus without complication, without long-term current use of insulin (ICD-10 - E11.9) 1. Recurrent UTI: Will trial switching from nitrofurantoin to methenamine hippurate. Reviewed dosing and possible side effects. She will keep me apprised of her progress 2. Type 2 diabetes mellitus: We will update A1c on current diet control. She has had long-term stability in this regard with last A1c being 6.2 3. Hypertension: Stable on current losartan, amlodipine and hydrochlorothiazi de. Will continue same 4. Chronic allergic rhinitis: Continues with allergy shots. Recommended Claritin or Charisma along with Flonase for flare of symptoms. She will let me know if not improving 01/06/2025 Essential (primary) hypertension (ICD-10 - I10) 1. Recurrent UTI: Will trial switching from nitrofurantoin to methenamine hippurate. Reviewed dosing and possible side effects. She will keep me apprised of her progress 2. Type 2 diabetes mellitus: We will update A1c on current diet control. She has had long-term stability in this regard with last A1c being 6.2 3. Hypertension: Stable on current losartan, amlodipine and hydrochlorothiazi de. Will continue same 4. Chronic allergic rhinitis: Continues with allergy shots. Recommended Claritin or Charisma along with Flonase for flare of symptoms. She will let me know if not improving 01/06/2025 Chronic allergic rhinitis (ICD-10 - J30.9) 1. Recurrent UTI: Will trial switching from nitrofurantoin to methenamine hippurate. Reviewed dosing and possible side effects. She will keep me apprised of her progress 2. Type 2 diabetes mellitus: We will update A1c on current diet control. She has had long-term stability in this regard with last A1c being 6.2 3. Hypertension: Stable on current losartan, amlodipine and hydrochlorothiazi de. Will continue same 4. Chronic allergic rhinitis: Continues with allergy shots. Recommended Claritin or Charisma along with Flonase for flare of symptoms. She will let me know if not improving PLAN OF TREATMENT Medication Medication Name Sig Start Date Stop Date Notes Methenamine Hippurate 1 GM 1 tablet Oral ly Twice a day for 30 day(s) 01/06/2025 hydroCHLOROthiazide 25 MG 1 tablet in th e morning Orally Once a day Losartan Potassium 100 MG 1 tablet Orall y Once a day amLODIPine Besylate 2.5 MG 1 tablet Oral ly Once a day Nitrofurantoin Macrocrystal 50 MG 1 caps ule at bedtime with food or milk Orally Once a day Next Appt Details Provider Name:YVON RAE , 04/07/2025 11:15:00 AM, [address] [place], [address], Progress Notes * Examination Category Sub-Category Detail Notes Category Not es General Examination Heart: RSR, normal S1S2 Lungs: clear to auscultatio n Abdomen: soft, non tender/non distended Extremities: no edema General Appearance no apparent distress , pleasant Psych: alert, oriented X 3 Other normal affect History and Physical Notes * HPI (History of Present Illness) Category Sub-Category Detail Notes Category Not es General Patient c/o increased allergy symptoms - very congested today. Still getting allergy shots - once every 4 weeks. Patient reports no recurrent UTI symptoms, but feels nitrofurantoin upsets her stomach. She is not having any chest pain, palpitations or shortness of breath
--- OUTSIDE RECORDS SUMMARY | 2025-01-07 01:21 | XMS_ITS ---
Author Organization [facility] Address [address] [place], [place] [phone] Care Team Providers Care Editor News Name Role Phone YVON RAE Primary Care Provider [phone] REASON FOR VISIT labs Encounters Encounter Location Date Provider Diagnosis [facility] [address] [place] [address] 01/07/2025 YVON RAE PLAN OF TREATMENT Next Appt Details Provider Name:YVON RAE , 04/07/2025 11:15:00 AM, [address] [place], [address],
--- OUTSIDE RECORDS SUMMARY | 2025-03-05 20:49 | XMS_ITS | Patient Health Record ---
Author Organization [facility] Address [address] [place], [place] [id number] Care Team Providers Care Angle Shear Set Up Operator Name Role Phone YVON RAE Primary [...] Problem Vitamin D deficiency (E55.9) Active confirmed 26153312 Problem Age-related osteoporosis without current pathological fracture (M81.0) Active confirmed 00758503 Problem Chronic obstructive pulmonary disease, unspecified COPD type (J44.9) Active confirmed 68102955 Problem Chronic allergic rhinitis (J30.9) Active confirmed 14380958 Problem Type 2 diabetes mellitus with hyperglycemia, without long-term current use of insulin (E11.65) Active confirmed Hyperglycem ia due to type 2 diabetes mellitus (771231859622699 ) Problem Type 2 diabetes mellitus without complication, without long-term current use of insulin (E11.9) Active confirmed Type II diab etes mellitus without complication (194222903) Problem Essential (primary) hypertension (I10) 0 Active confirmed Essential hypertension (26161933) Problem Vitamin D deficiency, unspecified (E55.9) 4 Active confirmed Vitamin D deficiency (00199318) Problem Impaired fasting glucose (R73.01) 4 Active confirmed Impaired fasting glucose (453127199) Problem Encounter for general adult medical examination with abnormal findings (Z00.01) 4 Active confirmed Problem, abnormal examination (70173360) VITAL SIGNS Blood pressure diastolic 80 mm Hg 01/06/2025 Height 62.00 in 01/06/2025 Blood pressure systolic 132 mm Hg 01/06/2025 Weight 95.8 lbs 01/06/2025 BMI 17.52 kg/m2 01/06/2025 Encounters Encounter Location Date Provider Diagnosis [address] [address] 04/22/2024 [facility] Acute UTI N39.[address] [address] 04/23/2024 [address] [place] [address] 04/29/2024 [facility] Acute UTI N39.0 [facility] [address] [place] [address] 05/04/2024 [facility] Acute UTI N39.0 [facility] [address] [place] [address] 05/16/2024 [facility] [address] [place] [address] 05/17/2024 [facility] Recurrent UTI N39.0 and Pelvic pain R10.2 [facility] [address] [place] [address] 05/17/2024 [facility] [address] [place] [address] 05/20/2024 [facility] [address] [place] [address] 05/20/2024 [facility] [address] [place] [address] 05/27/2024 [facility] Acute UTI N39.0 [facility] [address] [place] [address] 05/27/2024 [facility] [address] [place] [address] 05/28/2024 [facility] [address] [place] [address] 05/29/2024 [facility] [address] [place] [address] 05/30/2024 [facility] [address] [place] [address] 06/04/2024 [facility] Acute UTI N39.0 [facility] [address] [place] [address] 06/08/2024 [facility] [address] [place] [address] 06/10/2024 [facility] [address] [place] [address] 06/10/2024 [facility] Recurrent UTI N39.0 ; Type 2 diabetes mellitus without complication, without long-term current use of insulin E11.9 and Essential (primary) hypertension I10 [facility] [address] [place] [address] 06/14/2024 [facility] [address] [place] [address] 06/17/2024 [facility] Acute UTI N39.0 [facility] [address] [place] [address], [place] [address] 06/20/2024 [facility] [address] [place] [address], [place] [address] 06/26/2024 [facility] [address] [place] [address], [place] [address] 07/10/2024 [facility] [address] [place] [address], [place] [address] 07/10/2024 [facility] [facility] [address] [place] [address], [place] [address] 08/08/2024 [facility] Recurrent UTI N39.0 ; Essential (primary) hypertension I10 ; Other fatigue R53.83 and Type 2 diabetes mellitus without complication, without long-term current use of insulin E11.[address] [address] 08/09/2024 [facility] [address] [place] [address] 08/27/2024 [facility] [address] [place] [address], [place] [address] 10/10/2024 [facility] Recurrent UTI N39.0 ; Type 2 diabetes mellitus without complication, without long-term current use of insulin E11.9 and Essential (primary) hypertension I10 [facility] [address] [place] [address], [place] [address] 01/06/2025 [facility] Recurrent UTI N39.0 ; Type 2 diabetes mellitus without complication, without long-term current use of insulin E11.9 ; Essential (primary) hypertension I10 and Chronic allergic rhinitis J30.9 [facility] [address] [place] [address] 01/07/2025 [facility] Encounter Date Diagnosis Assessment Notes Treatment Notes Treatment Clinical Notes Section Notes 04/22/2024 Acute UTI (ICD-10 - N39.0) 04/29/2024 [...] will let me know if not improving 06/10/2024 Essential (primary) hypertension (ICD-10 - I10) [...] DEXA 08/17/2023 Next Appt Details Provider Name:YVON RAE , 04/07/2025 11:15:00 AM, [address] [place], [address], Insurance Providers Payer Name Payer Address Payer Phone Subscriber Number Group Number Insured Name Patient Relationship to Insured Coverage Start Date Coverage End Date [employer] [address] [place] [phone] [id number] MIKE REBOLLEDO Self - patient is the insured 3 MEDICAL (GENERAL) HISTORY Medical History History ICD Code HTN Osteoporosis Surgical History Surgery Date(Month/Year) T+A
== END 2025-03-05 10:39 | disposition home or self-care (01) ==
LOC: HO.HMGAL 10:38
PROVIDERS: PCP Internal Medicine; Visit Provider Registered Nurse Emergency
DX: J30.89 Other allergic rhinitis (principal)
CPT/HCPCS: 95117; 95165

== ENCOUNTER 2025-03-31 12:52 | Outpatient (AMB) | payer MEDICARE, SELFPAY ==
--- OUTSIDE RECORDS SUMMARY | 2024-06-14 06:00 | XMS_ITS ---
Author Organization [facility] Address [address] [place] [address] Care Team Providers Care Model Maker Plaster Name Role Phone YVON RAE Primary Care Provider REASON FOR VISIT 41/ 3mo Encounters Encounter Location Date Provider Diagnosis [place] [phone] 06/14/2024 YVON RAE Plan Of Treatment Next Appt Details Provider Name:YVON RAE , 04/07/2025 11:15:00 AM, [address] [place], [address], Progress Notes * MIKE REBOLLEDO MDOB:[birth year] (79 yo F)Acc No.[id number]:06/14/2024 Progress Notes Patient: Vadim SANCHEZ MIKE Dueñas Provider: Antonino RAE M.D. :1945 A ge:78 Y S ex:Female Date:06/14/2024 Address:[address], [place] Subjective: * Chief Complaints: * 4 1/ 3mo * Electronic signature of YVON RAE MD on 03/31/2025 at 06:37 PM EST Sign off status: Pending * Provider: Antonino RAE M.D. Date: 0 06/14/2024 Generated for Germani ng/Fagiseleg/eTransmitting on: 1 06/01/2024 06:37 PM EST
--- OUTSIDE RECORDS SUMMARY | 2024-07-10 06:15 | XMS_ITS ---
Author Organization [facility] Address [address] [place] [address] Care Team Providers Care Baggage Agent Name Role Phone YVON RAE Primary Care Provider [phone] REASON FOR VISIT 41/ 3mo Encounters Encounter Location Date Provider Diagnosis [place] [phone] 07/10/2024 YVON RAE Plan Of Treatment Next Appt Details Provider Name:YVON RAE , 04/07/2025 11:15:00 AM, [address] [place], [address], Progress Notes * MIKE REBOLLEDO MDOB:[birth year] (79 yo F)Acc No.[id number]:07/10/2024 Progress Notes Patient: REBA GALICIALORENA Dueñas Provider: Antonino RAE M.D. :1945 A ge:78 Y S ex:Female Date:07/10/2024 Address:[address], [place] Subjective: * Chief Complaints: * 4 1/ 3mo Billing Information: * Procedure Codes: * Electronic signature of YVON RAE MD on 03/31/2025 at 06:36 PM EST Sign off status: Pending * Provider: Antonino ARE M.D. Date: 0 07/10/2024 Generated for Printi ng/Faxing/eTransmitting on: 1 06/01/2024 06:36 PM EST
--- OUTSIDE RECORDS SUMMARY | 2025-03-31 18:36 | XMS_ITS | Patient Health Record ---
Author Organization [facility] Address [address] [place] [address] Care Team Providers Care Computer Help Desk Representative Name Role Phone YVON RAE Primary Care Provider [phone] Allergies Allergen (clinical drug ingredient) Drug/Non Drug Allergy documented on EMR Reaction Allergy Type Onset Date Status codeine Codeine Unknown Drug Allergy Active Reason For Referral No Information Medications Medication SIG (Take, Route, Frequency, Duration) Notes Start Date End Date Status Methenamine Hippurate 1 GM Tablet 1 tablet Orally Twice a day; Duration: 30 day(s) 01/06/2025 Active hydroCHLOROthiazide 25 MG Tablet 1 tablet in the morning Orally Once a day Active amLODIPine Besylate 2.5 MG Tablet TAKE 1 TABLET BY MOUTH EVERY DAY; Duration: 90 Active Losartan Potassium 100 MG Tablet 1 tablet Orally Once a day Active Immunizations Vaccine Route Administration Date Status Comme nts Covid Unknown 01/19/2022 Administered Pfizer COVID-19,mRNA, LNP-S, PF, 30mcg/0.3mL dose Unknown 06/27/2020 Administered Pfizer COVID-19,mRNA, LNP-S, PF, 30mcg/0.3mL dose Unknown 07/18/2020 Administered Pneumococcal Prevnar 13 IM Intramuscular 03/25/2013 Admini stered Pneumococcal Prevnar 13 Unknown 08/21/2018 Administered Pneumococcal, PPV 23 Unknown 03/25/2013 Administered Pneumococcal, PPV 23 IM Intramuscular 07/22/2019 Administe red SARSCOV2 VAC 3 MCG TRS-SUCR Pfizer Unknown 08/24/2021 Administered SARSCOV2 VAC BVL 3MCG/0.2ML Pfizer Unknown 02/02/2021 Administered Td (Tetanus Diphtheria) Unknown 11/28/2008 Administered Zoster recombinant SC Subcutaneous 11/21/2012 Administered Social History Tobacco Use: Social History Observation Description Date Details (start date - stop date) Former Smoker NA - NA Social History Tobacco Use: Social Info Question Answer Notes Smoking Are you a: former smoker How long has it been since you last smoked? > 10 years Additional Details Category Social Info Options Details General Occupation: Retired asbestos exposure: no alcohol use: no drug use: no Coffee/Tea/Soda: yes Marital Status experience no Living with Pets none smokers in household no Problems Problem Type SNOMED Code ICD Code Onset Dates Problem Status W/U Status Risk Notes Problem Vitamin D deficiency (76700752) Vitamin D deficiency (E55.9) Active confirmed Problem Age-related osteoporosis (810900122) Age-related osteoporosis without current pathological fracture (M81.0) Active confirmed Problem COPD - Chronic obstructive pulmonary disease (64577670) Chronic obstructive pulmonary disease, unspecified COPD type (J44.9) Active confirmed Problem Allergic rhinitis (57179269) Chronic allergic rhinitis (J30.9) Active confirmed Problem Hyperglycemia due to type 2 diabetes mellitus (951151896959115) Type 2 diabetes mellitus with hyperglycemia, without long-term current use of insulin (E11.65) Active confirmed Problem Type II diabetes mellitus without complication (841689980) Type 2 diabetes mellitus without complication, without long-term current use of insulin (E11.9) Active confirmed Problem Essential hypertension (90381319) Essential (primary) hypertension (I10) 0 Active confirmed Problem Vitamin D deficiency (01195953) Vitamin D deficiency, unspecified (E55.9) 4 Active confirmed Problem Impaired fasting glucose (729189220) Impaired fasting glucose (R73.01) 4 Active confirmed Problem Problem, abnormal examination (91022330) Encounter for general adult medical examination with abnormal findings (Z00.01) 4 Active confirmed Vital Signs Blood pressure diastolic 80 mm Hg 01/06/2025 Height 62.00 in 01/06/2025 Blood pressure systolic 132 mm Hg 01/06/2025 Weight 95.8 lbs 01/06/2025 BMI 17.52 kg/m2 01/06/2025 Encounters Encounter Location Date Provider Diagnosis [facility] [address] [place] [address] 05/17/2024 [facility] Recurrent UTI N39.0 and Pelvic pain R10.[address] [address] 06/10/2024 [facility] Recurrent UTI N39.0 ; Type 2 diabetes mellitus without complication, without long-term current use of insulin E11.9 and Essential (primary) hypertension I10 [address] [address] 08/08/2024 [facility] Recurrent UTI N39.0 ; Essential (primary) hypertension I10 ; Other fatigue R53.83 and Type 2 diabetes mellitus without complication, without long-term current use of insulin E11.9 [place] [id number]/10/2024 [facility] Recurrent UTI N39.0 ; Type 2 diabetes mellitus without complication, without long-term current use of insulin E11.9 and Essential (primary) hypertension I10 [address] [address] 01/06/2025 [facility] Recurrent UTI N39.0 ; Type 2 diabetes mellitus without complication, without long-term current use of insulin E11.9 ; Essential (primary) hypertension I10 and Chronic allergic rhinitis J30.[address] [address] 04/22/2024 [facility] Acute UTI N39.[address] [address] 04/23/[address] [address] 04/29/2024 [facility] Acute UTI N39.[address] [address] 05/04/2024 [facility] Acute UTI N39.[address] [address] 05/16/2024 [facility] [address] [address] 05/17/2024 [facility] [address] [address] 05/20/2024 [facility] [address] [place] [address] 05/20/2024 [facility] [address] [place] [address] 05/27/2024 [facility] Acute UTI N39.0 [facility] [address] [place] [address] 05/27/2024 [facility] [address] [place] [address] 05/28/2024 [facility] [address] [place] [address] 05/29/2024 [facility] [address] [place] [address] 05/30/2024 [facility] [address] [place] [address] 06/04/2024 [facility] Acute UTI N39.0 [facility] [address] [place] [address] 06/08/2024 [facility] [address] [place] [address], [place] [address] 06/10/2024 [facility] [address] [place] [address], [place] [address] 06/17/2024 [facility] Acute UTI N39.0 [facility] [address] [place] [address] 06/20/2024 [facility] [address] [place] [address] 06/26/2024 [facility] [address] [place] [address] 07/10/2024 [facility] [address] [place] [address] 08/09/2024 [facility] [address] [place] [address] 08/27/2024 [facility] [address] [place] [address] 01/07/2025 YVON MONTANAFORD Assessments Encounter Date Diagnosis (ICD Code) Assessment Notes Treatment Notes Treatment Clinical Notes Section Notes 01/06/2025 Type 2 diabetes mellitus without complication, [...] will let me know if not improving 04/22/2024 Acute UTI (ICD-10 - N39.0) 04/29/2024 [...] with diet. Will recheck A1c today 01/06/2025 Recurrent UTI (ICD-10 - N39.0) [...] will let me know if not improving 10/10/2024 Recurrent UTI (ICD-10 - N39.0) 1. [...] let me know if not improving 08/08/2024 Other fatigue (ICD-10 - R53.83) 1. Recurrent UTI: Better controlled with nitrofurantoin. Will continue at present. Discussed trialing a different probiotic such as Align 2. Hypertension: Stable on present losartan hydrochlorothiazide and amlodipine. No changes made today 3. Fatigue: Will check thyroid function with laboratory studies 4. Type 2 diabetes mellitus: Has been stable with diet. Will recheck A1c today 06/10/2024 Essential (primary) hypertension (ICD-10 - I10) [...] Will recheck at follow-up in 1 month 10/10/2024 Essential (primary) hypertension (ICD-10 - I10) [...] present therapy. No changes made today 01/06/2025 Chronic allergic rhinitis (ICD-10 - [...] stable with diet. Will recheck A1c today Plan Of Treatment Pending Test Test Name Order Date XR Thumb Right 3 views 01/11/2023 PFT (Pulmonary Function Test) 11/17/2023 Bone Density 2 site DEXA 08/17/2023 Next Appt Details Provider Name:YVON RAE , 04/07/2025 11:15:00 AM, [address] [place], [address], Insurance Providers Payer Name Payer Address Payer Phone Subscriber Number Group Number Insured Name Patient Relationship to Insured Coverage Start Date Coverage End Date [employer] [address] [place] [phone] [id number] MIKE REBOLLEDO Self - patient is the insured 3 Medical (General) History Medical History History ICD Code HTN Osteoporosis Surgical History Surgery Date(Month/Year) T+A
== END 2025-03-31 12:52 | disposition home or self-care (01) ==
LOC: HO.HMGAL 12:52
PROVIDERS: PCP Internal Medicine; Visit Provider Registered Nurse Emergency
DX: J30.89 Other allergic rhinitis (principal)
CPT/HCPCS: 95117; 95165